=== PATIENT | male | born 1980 | race African-American/Black ===

== ENCOUNTER 2017-10-19 21:27 | Emergency (ER) | payer OTHER ==
[2017-10-19] MEDS ORDERED: Fentanyl 100 MCG/2 ML VIAL ONE (21:39)
[2017-10-19] MEDS ORDERED: Ondansetron HCl/PF 4 MG/2 ML Vial ONE (21:40)
[2017-10-19] MEDS ORDERED: Ketorolac Tromethamine 30 MG/ML VIAL ONE (21:40)
--- NOTE | 2017-10-19 22:48 | RAD ---
TWO VIEW CERVICAL SPINE: History: Neck pain after injury. FINDINGS: AP, lateral and open mouth odontoid views cervical spine obtained. The cervical spine is unremarkable. No evidence of cervical spine fractures or bony lesions seen. No evidence of prevertebral soft tissue swelling. IMPRESSION: Normal cervical spine. POS: [facility]
--- NOTE | 2017-10-19 22:48 | RAD ---
TWO VIEWS LUMBAR SPINE: History: Lumbar spine pain. FINDINGS: AP and lateral views of obtained and demonstrate no evidence lumbar spine fractures, subluxations, or bony lesions. IMPRESSION: Normal two views lumbar spine. POS: [facility]
== END 2017-10-19 22:47 | disposition home or self-care (01) ==
LOC: MADERS 21:27
DX: S30.0XXA Contusion of lower back and pelvis, initial encounter (principal); F17.290 Nicotine dependence, other tobacco product, uncomplicated; V09.9XXA Pedestrian injured in unspecified transport accident, initial encounter
CPT/HCPCS: 72040; 72100; 96374; 96375; G0390; J1885; J2405; J3010